=== PATIENT | male | born 1940 | race Caucasian/White ===

== ENCOUNTER → 2016-11-21 | Outpatient (CLI) | payer OTHER ==
[~2016-11-21] MED LIST: ASPI1TAB83 PO; MULT-506 PO; OMEGCAP2 PO; SIMV20TA2 PO
--- NOTE | 2016-11-21 10:28 | DIAGNOSTIC IMAGING REPORT ---
CHEST CT WITHOUT CONTRAST CT DOSE: 775.24 mGycm HISTORY: Lung mass. Follow-up. TECHNIQUE: Multiaxial CT images of the chest were performed without contrast. COMPARISON: Chest CT 08/04/2016. FINDINGS: The central airways remain patent. No pleural effusions. No pneumothorax. There is again noted wedge resection within the right upper lobe. Persistent mild thickening along the suture material. No significant change in the 1 cm low density/cystic lesion abutting the suture material within the right upper lobe best seen on image 96 of 377. Mild interstitial thickening at the base of the right lower lobe has slightly improved. No new focal lung consolidations. Bilateral renal hypodense lesions are incompletely characterized on this noncontrast study. The 1.5 cm upper pole lesion within the right kidney appears to represent an enhancing mass based on the outside hospital CT from 03/23/2016. The unenhanced liver, spleen, and adrenal glands are unremarkable. No mediastinal or hilar lymphadenopathy. The heart is normal in size. No suspicious lytic or blastic osseous lesions. IMPRESSION: 1. No change in the 1 cm low-density/cystic lesion abutting the suture material within the right upper lobe. Continued follow-up is recommended to ensure resolution/stability. 2. A 1.5 cm lesion within the upper pole of the right kidney which is incompletely characterized on this noncontrast study. However, in comparison to the prior studies this is concerning for a solid renal mass. Please refer to the report from the dedicated renal CT dated 03/23/2016 for further evaluation. Electronically signed by: Hunter Farmer M.D. 11/21/2016 10:26 AM Dictated Date/Time: 11/21/2016 10:16 AM
== END | disposition home or self-care (01) ==
LOC: C.CTS 09:59
PROVIDERS: ATTEND Surgery
DX: R91.8 Other nonspecific abnormal finding of lung field (principal); R91.1 Solitary pulmonary nodule; N28.9 Disorder of kidney and ureter, unspecified

== ENCOUNTER → 2017-05-28 | Outpatient (CLI) | payer OTHER ==
[~2017-05-28] MED LIST changes: +OPTIRAY 320 IV PRN
--- NOTE | 2017-05-28 15:25 | DIAGNOSTIC IMAGING REPORT ---
(CHEST) THORAX WITHOUT CLINICAL HISTORY: LUNG NODULE,RENAL MASS COMPARISON STUDY: 11/21/2016 , July 2016. CT DOSE: 345.36 mGycm TECHNIQUE: CT of the thorax was performed from the thoracic inlet to the lung bases. Images are reviewed in the axial, sagittal, and coronal planes. IV contrast was not administered for this examination. A dose lowering technique was utilized adhering to the principles of ALARA. FINDINGS: Thyroid: Imaged portions of the thyroid gland are normal in appearance. Thoracic aorta: The thoracic aorta is normal in course and caliber, noting standard 3 vessel arch anatomy. Heart: The heart is normal in size and configuration, without pericardial effusion. Lungs and pleural spaces: No pleural effusions are visualized. There are postsurgical changes of a right upper lobe wedge resection. There is stable nodularity along the suture but serial. There are no new or enlarging pulmonary nodules. Mediastinum: There is no pathologic mediastinal adenopathy by size criteria. Zari: There is no evidence of pathologic hilar adenopathy given the limitations of a noncontrast study. Axilla: There is no evidence of pathologic axillary lymphadenopathy. Upper abdomen: The visualized portions of the adrenal glands are unremarkable. Skeletal structures: There are no lytic or blastic osseous lesions. IMPRESSION: 1. No cystic change compared the preceding study 2. Postsurgical changes of a right upper lobe wedge resection 3. Stable nodular thickening along the right upper lobe suture material 4. No evidence of pathologic adenopathy Electronically signed by: Jovany Reyes M.D. 05/28/2017 3:23 PM Dictated Date/Time: 05/28/2017 3:18 PM
--- NOTE | 2017-05-28 15:45 | DIAGNOSTIC IMAGING REPORT ---
KIDNEY (ABDOMEN) COMBO CLINICAL HISTORY: LUNG Nodule, renal MASS TECHNIQUE: Transaxial multi phase acquisition pre and post contrast enhancement COMPARISON STUDY: 03/23/2016 FINDINGS: Liver spleen and pancreas enhance uniformly. Bilateral simple renal cysts unchanged from the prior study. Complex partially enhancing 1.5 cm nodule medial aspect right renal upper pole. Hounsfield units initially are approximately 16. This increases to the mid 70s on all later phases of the exam. Dimension is slightly increased in volume from the prior study by 1 to 2 mm. All remaining components of the kidneys enhance uniformly. There is no evidence renal hydronephrosis. There is no significant periaortic adenopathy. Bowel pattern is considered nonobstructive throughout. Osseous structures show degenerative change. IMPRESSION: 1. 1.5 cm enhancing nodule medial aspect right upper renal pole. 2. Enhancement characteristics are similar compared to the prior study of 03/23/2016, with maximum current dimensions of 1.5 cm. 3. Maximum dimension has increased 1 to 2 mm as compared to the prior study. 4. A neoplastic process at this site is not excluded. 5. Multiple bilateral simple renal cysts unchanged from the prior study. 6. All remaining components of the study are unremarkable. The above report was generated using voice recognition software. It may contain grammatical, syntax or spelling errors. Electronically signed by: Javy Macias M.D. 05/28/2017 3:43 PM Dictated Date/Time: 05/28/2017 3:33 PM
== END | disposition home or self-care (01) ==
LOC: C.CTS 14:23
PROVIDERS: ATTEND Surgery
DX: R91.1 Solitary pulmonary nodule (principal); N28.89 Other specified disorders of kidney and ureter

== ENCOUNTER → 2017-11-21 | Outpatient (CLI) | payer OTHER ==
[~2017-11-21] MED LIST changes: -OPTIRAY 320 IV PRN
[2017-11-21 09:36] LABS: BLOOD UREA NITROGEN 19 mg/dl (7-18); CREATININE 1.17 mg/dl (0.60-1.40)
== END | disposition home or self-care (01) ==
LOC: C.LAB1850 07:41
PROVIDERS: ATTEND Urology
DX: N28.89 Other specified disorders of kidney and ureter (principal)

== ENCOUNTER → 2017-11-22 | Outpatient (CLI) | payer OTHER ==
[~2017-11-22] MED LIST changes: +OPTIRAY 320 IV PRN
--- NOTE | 2017-11-22 10:09 | DIAGNOSTIC IMAGING REPORT ---
ABD/PELVIS COMBO CT DOSE: 1680.48 mGycm HISTORY: Mass N28.89 Renal massR10.9 Flank painno latex allergy, no iodine all TECHNIQUE: Multiaxial CT images of the abdomen and pelvis were performed pre and post intravenous contrast enhancement. A dose lowering technique was utilized adhering to the principles of ALARA. COMPARISON STUDY: 05/28/2017 FINDINGS: Unchanged 1.5 cm complex enhancing nodule medial aspect right renal apex. This measures 1.5 cm currently and shows moderate postcontrast enhancement on all phases. Initial Hounsfield unit measurements are approximately 23 with an increase to the 70s and 80s on later aspects of the exam. This appearance and enhancement characteristics are similar to prior to the prior study. Liver is uniform throughout. Gallbladder is negative for distention. Multiple bilateral renal cysts are stable. No significant periaortic or retroperitoneal adenopathy. Bowel pattern is nonobstructive. Bladder is midline. No significant pelvic or inguinal adenopathy. IMPRESSION: 1. Unchanged 1.5 cm complex enhancing nodule medial aspect upper pole right kidney. 2. Its appearance and enhancement characteristics again suggests a focal neoplastic process. 3. Unchanging bilateral renal cysts. 4. The abdomen and pelvis is otherwise negative. The above report was generated using voice recognition software. It may contain grammatical, syntax or spelling errors. Electronically signed by: Javy Macias M.D. 11/22/2017 10:08 AM Dictated Date/Time: 11/22/2017 9:58 AM
== END | disposition home or self-care (01) ==
LOC: C.CTS 09:19
PROVIDERS: ATTEND Urology
DX: R10.9 Unspecified abdominal pain (principal); N28.89 Other specified disorders of kidney and ureter; N28.1 Cyst of kidney, acquired